=== PATIENT | female | born 1995 | race Caucasian/White ===

== ENCOUNTER 2021-12-19 13:21 | Emergency (ER) | payer BC, SELFPAY ==
[2021-12-19] VITALS (7 sets, daily range): BP systolic 130–152; BP diastolic 79–101; PULSE 80–89; RESP 16–30; TEMP 36.6; O2SAT 96–99; BMI 28.7
--- NOTE | 2021-12-19 13:41 | CT_ITS ---
FINAL REPORT CLINICAL HISTORY: r flank pain FINDINGS: Axial CT images of the abdomen and pelvis were obtained without intravenous contrast. Coronal reformatted images were also obtained.This study was performed with techniques to keep radiation doses as low as reasonably achievable (ALARA). Individualized dose reduction techniques using automated exposure control or adjustment of mA and/or kV according to the patient's size were employed. Abdomen: There is mild atelectasis or scarring in the lung bases. There is a centrally calcified nodule in the left lung base consistent with a granuloma. There is mild fatty infiltration of the liver. The gallbladder is present. There is early calcification of the renal pyramids. The pancreas and spleen are unremarkable. The right kidney is enlarged. There is no well-defined renal stone. There is a tubular structure anterior to the right psoas muscle. It is uncertain this is moderate right hydroureter or a dilated right ovarian vein. Pelvis: Images of the pelvis reveal a 6 mm calcification near the right UVJ worrisome for a right UVJ stone. The appendix is partially visualized and normal where seen. IMPRESSION: Probable right UVJ stone with moderate right hydroureter. If indicated, postcontrast CT with delayed imaging. Reviewed, Interpreted and Dictated by Royce Klein III, MD Transcribed by Zenon Fernández Authenticated by Royce Klein III, MD on 12/19/2021 03:39:40 PM [facility]
[2021-12-19 13:53] LABS: Chloride 100 mmol/L (98-107); Potassium 3.5 mmoL/L (3.5-5.1); Sodium 140 mmol/L (136-145)
[2021-12-19 13:55] LABS: Blood Urea Nitrogen 18 mg/dl (7-17); Creatinine Clearance Estimated 157 mL/min (50-200); Estimated Glomerular Filt Rate 102 ml/min (>60); GFR (African American) 123 ML/MIN (>60)
[2021-12-19 13:56] LABS: Alanine Aminotransferase 71 U/L (12-78); Albumin Level 5.1 g/dl (3.5-5.0); Albumin/Globulin Ratio 1.5 (1.1-1.8); Alkaline Phosphatase 147 U/L (38-126); Anion Gap 18.5 mEq/L (5-15); Aspartate Amino Transferase 46 U/L (14-36); Bilirubin,Total 0.5 mg/dl (0.2-1.3); Calcium 9.3 mg/dl (8.4-10.2); Carbon Dioxide 25 mmol/L (22.0-30.0); Globulin 3.4 g/dL (1.3-3.2); Glucose 105 mg/dl (74-100); Total Protein,Serum 8.5 g/dl (6.3-8.2)
--- NOTE | 2021-12-19 13:57 | HMH.EDGENADL ---
ED Disposition Clinical Impression: Nephrolithiasis Disposition: Home, Self-Care Condition on Discharge: Good Instructions: DI for Low Back Pain Additional Instructions: Please continue to monitor your condition closely at home. If your condition worsens or any of the following symptoms arise, please return to the emergency department for reassessment. Please keep an eye out for fever, nausea, vomiting, inability to keep down fluids or food, worsening abdominal pain, any other concerns. Otherwise, please follow-up with your primary care physician within 1 week. Prescriptions: Tamsulosin HCl [Flomax 0.4mg capsule] 0.4 mg PO HS 14 Days #14 cap Transmission Status: Received by [id number] Cefdinir [Omnicef 300mg Capsule] 300 mg PO BID #20 cap Transmission Status: Received by [id number] Referrals: Provider,Referral, [Primary Care Provider] - - Critical Care Critical Care Time: No Attestation: On 12/19/21, the high probability of a clinically significant, sudden or life threatening deterioration of the following system(s) required my full and direct attention, intervention and personal management. The time I documented below is in addition to time spent performing reported procedures but includes the following listed in this critical care notation. Medical Decision Making - Medical Records Medical records reviewed: Yes: I reviewed the patient's medical records. - Doroteo Inquiry Pt receiving controlled substance: No Vital Signs: 12/19/21 13:37 Temperature 97.8 F Temperature Source Oral Pulse Rate [Radial] 80 Respiratory Rate 30 H Blood Pressure [Right Arm] 150/82 H Blood Pressure Mean [Right Arm] 104 Blood Pressure Position [Right Arm] Sitting 02 Sat by Pulse Oximetry 98 Oxygen Delivery Method Room Air - Lab Data Lab results reviewed: Yes: I reviewed the patient's lab results. Lab Results 12/19/21 13:35: WBC 12.2 H, RBC 5.57 H, Hgb 13.8, Hct 43.7, MCV 78.5 L, MCH 24.8 L, MCHC 31.6 L, RDW 19.0 H, Plt Count 431 H, MPV 8.2, Neut % (Auto) 69.9, Lymph % (Auto) 25.0, Boyd % (Auto) 2.7, Eos % (Auto) 1.2, Baso % (Auto) 1.2, Neut # (Auto) 8.5 H, Lymph # (Auto) 3.0, Boyd # (Auto) 0.3, Eos # (Auto) 0.2, Baso # (Auto) 0.2 12/19/21 13:35: Sodium 140, Potassium 3.5, Chloride 100, Carbon Dioxide 25, Anion Gap 18.5 H, BUN 18 H, Creatinine 0.70, Estimated Creat Clear 157, Estimated GFR 102, Est GFR ( Amer) 123, Glucose 105 H, Calcium 9.3, Total Bilirubin 0.5, AST 46 H, ALT 71, Alkaline Phosphatase 147 H, Total Protein 8.5 H, Albumin 5.1 H, Globulin 3.4 H, Albumin/Globulin Ratio 1.5 12/19/21 13:35: Serum HCG, Qual Negative 12/19/21 14:20: Urine Color Yellow, Urine Appearance Clear, Urine pH 8.5, Ur Specific [place] 1.015, Urine Protein Negative, Urine Glucose (UA) Negative, Urine Ketones Negative, Urine Blood Negative, Urine Nitrate Negative, Urine Bilirubin Negative, Urine Urobilinogen 0.2, Ur Leukocyte Esterase Negative, Urine RBC Occasional, Urine WBC None, Ur Squamous Epith Cells None, Urine Bacteria Trace Result diagrams: 12/19/21 13:35 12/19/21 13:35 Orders (Tests/Meds): ED MEDICATIONS Generic Name Dose Route Start Last Admin Trade Name Freq PRN Reason Stop Dose Admin Cefdinir 300 mg 12/20/21 09:00 Cefdinir 300mg Capsule PO 12/20/21 09:01 ONCE ONE Discontinued Medications Generic Name Dose Route Start Last Admin Trade Name Freq PRN Reason Stop Dose Admin Hydromorphone HCl 0.5 mg 12/19/21 13:39 12/19/21 13:43 Hydromorphone 2mg/Ml Syringe IV 12/19/21 13:40 0.5 mg ONCE ONE Administration Sodium Chloride 1,000 mls @ 999 mls/hr 12/19/21 13:45 12/19/21 13:42 Sod Chlor 0.9% 1000ml Bag IV 12/19/21 14:45 999 mls/hr .Q1H1M DON Administration Lactated Ringer's 1,780 mls @ 890 mls/hr 12/19/21 15:00 12/19/21 15:07 Lactated Ringer's 1000 Ml Bag 30 ml/kg infuse over 2 hr (1780 ml) 12/19/21 16:59 Not Given IV .Q2H ONE Lactated Ri
[2021-12-19 14:03] LABS: Basophils # 0.2 K/mm3 (0-0.2); Basophils % 1.2 % (0.1-2.0); Eosinophils # 0.2 K/mm3 (0.0-0.4); Eosinophils % 1.2 % (0.1-12.0); Hematocrit 43.7 % (37.0-47.0); Hemoglobin 13.8 g/dL (12.2-16.2); Mean Corpuscular HGB Conc 31.6 g/dL (31.8-35.4); Mean Corpuscular Hemoglobin 24.8 pg (27.0-31.2); Mean Corpuscular Volume 78.5 fl (81-99); Mean Platelet Volume 8.2 fl (7.4-10.4); Monocytes # 0.3 K/mm3 (0.1-1.0); Monocytes % 2.7 % (1.7-9.3); Neutrophils # 8.5 K/mm3 (1.8-7.8); Neutrophils % 69.9 % (37.0-80.0); Platelet Count 431 K/mm3 (142-424); Red Blood Count 5.57 M/mm3 (4.20-5.40); White Blood Count 12.2 K/mm3 (4.8-10.8)
[2021-12-19 14:22] LABS: Microscopic, Urine URINE MICROSCOPIC (MICROSCOPIC)
[2021-12-19 14:29] LABS: Appearance,Urine CLEAR (Clear); Bilirubin,Urine Negative (Negative); Blood, Urine Negative (Negative); Color,Urine YELLOW (Yellow); Glucose,Urine (UA) Negative (Negative); Ketones,Urine Negative (Negative); Leukocyte Esterase,Urine Negative (Negative); Nitrate,Urine Negative (Negative); PH,Urine 8.5 (5.0-8.5); Protein,Urine Negative (Negative); Specific Gravity, Urine 1.015 (1.005-1.030); Urobilinogen,Urine 0.2 EU/dl (0.2)
[2021-12-19 14:40] LABS: HCG Qualitative, Serum Negative (Negative)
[2021-12-19 14:44] LABS: Bacteria,Urine Trace /lpf; RBC,Urine Occasional #/hpf (0-3)
--- NOTE | 2021-12-19 17:10 | PC.NURSE ---
CALLED [facility] REGARDING HOME MEDS PRESCRIBED AND BREAST FEEDING. PHARMACIST SAID WITH FLOMAX TO WASTE BREAST MILK FOR 48HRS AFTER LAST DOSE. INFORMED PT OF THIS AND PLACED ON HER D/C INSTRUCTIONS
== END 2021-12-19 17:39 | disposition home or self-care (01) ==
PROVIDERS: Emergency Provider Emergency Medicine
DX: N20.1 Calculus of ureter (principal)
CPT/HCPCS: 74176; 80053; 81001; 84703; 85025; 96365; 96366; 96375; 99284; J2405